=== PATIENT | female | born 1945 | race Hispanic/Latino ===

== ENCOUNTER 2016-06-30 06:25 | Inpatient (IN) | payer BC ==
[2016-06-22 14:07] VITALS: BMI 26.8
--- NOTE | 2016-06-30 07:20 | CP.PCM.HP ---
History of Present Illness - History of Present Illness History of Present Illness: 70F with right knee DJD failed conservative mgmt and elected for TKR Denies dysuria patient states she was called by PMD who told her to stop antibiotics as urine culture was negative. Present on Admission - Present on Admission Any Indicators Present on Admission: No Review of Systems - Review of Systems All systems: reviewed and no additional remarkable complaints except - Musculoskeletal Musculoskeletal: As Per HPI Past Patient History - Infectious Disease Hx of Infectious Diseases: None - Tetanus Immunizations Tetanus Immunization: Unknown - Past Medical History & Family History Past Medical History?: Yes - Past Social History Smoking Status: Former Smoker - CARDIAC Hx Cardiac Disorders: Yes Hx Heart Attack: Yes (2002) Hx Hypercholesterolemia: Yes Hx Hypertension: Yes Other/Comment: HX: CARDIAC STENT X1 - ENDOCRINE/METABOLIC Hx Endocrine Disorders: Yes Hx Hypothyroidism: Yes Hx Systemic Lupus Erythematosus: Yes Other/Comment: "I WAS TREATED FOR LUPUS FOR 22 YEARS BUT IT HAS NOT SHOWN UP IN MY TESTING SO THEY TOOK ME OFF MED. FOR LUPUS." - MUSCULOSKELETAL/RHEUMATOLOGICAL Hx Musculoskeletal Disorders: Yes Hx Arthritis: Yes Hx Osteoarthritis: Yes - GASTROINTESTINAL Hx Gastrointestinal Disorders: Yes Hx Gall Bladder Disease: Yes Hx Gastroesophageal Reflux: Yes - GENITOURINARY/GYNECOLOGICAL Hx Genitourinary Disorders: Yes Other/Comment: HX: "DROPPED BLADDER" - SURGICAL HISTORY Hx Surgeries: Yes Hx Cholecystectomy: Yes Hx Coronary Stent: Yes (X1) Other/Comment: HX: "BLADDER LIFT" - ANESTHESIA Hx Anesthesia: Yes Hx Anesthesia Reactions: No Hx Malignant Hyperthermia: No Has any member of the family had a problem w/ anesthesia?: No Meds Allergies/Adverse Reactions: Allergies Allergy/AdvReac Type Severity Reaction Status Date / Time No Known Allergies Allergy Verified 08/22/13 19:16 Physical Exam - Constitutional Appears: Well, No Acute Distress Additional comments: Medical clearance and H&P on chart, Dr. Carey - Extremities Exam Additional comments: Right knee: skin intact, no erythema, sensation intact to RLE, calves soft NT neg homans - Expanded Lower Extremities Exam Right Hip exam: full ROM Ankle exam: FULL ROM, NORMAL INSPECTION Neuro vacular tendon exam: no vascular compromise - Neurological Exam Neurological exam: Alert, Oriented x3 - Psychiatric Exam Psychiatric exam: Normal Affect, Normal Mood - Skin Skin Exam: Dry, Intact, Normal Color, Warm Results - Impressions Impression: Imaging in office Assessment & Plan (1) Primary osteoarthritis of right knee Assessment and Plan: NPO for OR Status: Acute (2) SLE (systemic lupus erythematosus) Status: Acute (3) CAD (coronary artery disease) Status: Acute (4) Hypothyroidism Status: Acute Decision To Admit - Pt Status Changed To: Hospital Disposition Of: Inpatient - Admit Certification Admit to Inpatient:: After my assessment, the patient will require hospitalization for at least two midnights. This is because of the severity of symptoms shown, intensity of services needed, and/or the medical risk in this patient being treated as an outpatient. - InPatient: Physician Admission Certification:: After my assessment, the patient will require hospitalization for at least two midnights. This is because of the severity of symptoms shown, intensity of services needed, and/or the medical risk in this patient being treated as an outpatient. - . Bed Request Type: Regular Admitting Physician: Dirk Loredo
[2016-06-30] MEDS ORDERED: ceFAZolin IV 1 gm in Dextrose 0 GM/0 ML BAG IVPB ONE (07:42)
[2016-06-30] MEDS ORDERED: Bupivacaine Liposomal Inj 20 ml INFIL ONE (08:00)
[2016-06-30 08:18] LABS: RBC URINE 2 /hpf (0-3); URINE BILIRUBIN NEGATIVE (NEGATIVE); URINE BLOOD NEGATIVE (NEGATIVE); URINE COLOR Yellow (YELLOW); URINE GLUCOSE (UA) NORMAL (Normal); URINE KETONE NEGATIVE (NEGATIVE); URINE LEUKOCYTE ESTERASE 1+ Leu/uL (Negative); URINE PROTEIN NEGATIVE (NEGATIVE); URINE UROBILINOGEN NORMAL mg/dL (0.2-1.0); WBC URINE 9 /hpf (0-5)
[2016-06-30] MEDS ORDERED: Lactated Ringer's 1,000 ML IV ONE ×3 (08:25→10:30)
[2016-06-30] MEDS ORDERED: Propofol 10 mg/ml Inj (20 ML) ONE (08:27)
[2016-06-30] MEDS ORDERED: Midazolam 2 MG/2 ML VIAL ONE (08:27)
[2016-06-30] MEDS ORDERED: Rocuronium 10 mg/ml (10 ml) ONE (08:29)
[2016-06-30] MEDS ORDERED: ceFAZolin IV 2 gm in Dextrose 1 GM/50 ML BAG IVPB ONE (08:43)
[2016-06-30] MEDS ORDERED: Labetalol 25mg/5ml Syringe ONE (09:08)
[2016-06-30] MEDS: Bacitracin 150,000 UNIT in Sodium Chloride 0.9% Irrig 3,000 ML IR SCH ×2 (09:15→10:25)
[2016-06-30] MEDS ORDERED: Sodium Chloride 0.9% 60 ML IV ONE (09:18)
[2016-06-30] MEDS ORDERED: DiphenhydrAMINE 50 mg/ml Inj ONE (09:49)
--- NOTE | 2016-06-30 11:21 | PCM.SURG1 ---
Surgeon's Initial Post Op Note - Surgeon's Notes Surgeon: Jacob Loredo MD Customer Sales Consultant: Jus Hernandez PA-C Type of Anesthesia: General Endo Anesthesia Administered By: Dr. Herring Pre-Operative Diagnosis: Right knee DJD Operative Findings: Tourniquet: 79min@ 300mmHg Post-Operative Diagnosis: same Operation Performed: Right total knee replacement Specimen/Specimens Removed: bone, loose body Estimated Blood Loss: EBL {In ML}: 150 Blood Products Given: N/A Drains Used: Hemovac Post-Op Condition: Fair Date of Surgery/Procedure: 06/30/16 Time of Surgery/Procedure: 11:21
[2016-06-30] MEDS ORDERED: HYDROmorphone 0.5 mg/0.5 ml ISec IVP PRN ×2 (11:22)
[2016-06-30] MEDS ORDERED: Oxycodone/Acetaminophen 5/325 mg Tab PO PRN (11:22)
[2016-06-30] MEDS ORDERED: Sodium Chloride 0.9% 1,000 ML IV SCH (11:30)
[2016-06-30] MEDS ORDERED: ceFAZolin IV 2 gm in Dextrose 50 ML IVPB SCH (11:30)
--- NOTE | 2016-06-30 12:02 | OP ---
PROCEDURE DATE: 06/30/2016 PREOPERATIVE DIAGNOSIS: Right knee degenerative joint disease. POSTOPERATIVE DIAGNOSIS: Right knee degenerative joint disease. PROCEDURE: Right total knee arthroplasty. SURGEON: Dirk Loredo M.D. GREEN CHAIN OFFBEARER: Dr. Loredo was assisted by Reno Romero, the physician school health assistant. Ms. Romero was scrub bed and present throughout the entire case. She assisted in patient positioning, retraction during t he case, as well as wound closure. ANESTHESIA: General. COMPLICATIONS: None. ESTIMATED BLOOD LOSS: 150 mL. TOURNIQUET TIME: 79 minutes at 300 mmHg. IMPLANT: Biomet Vanguard total knee system. INDICATIONS FOR PROCEDURE: This is a 70-year-old female who presented with longstanding right knee p ain and deformity. Clinical and radiographic examination was consistent with advanced degenerative j oint disease and varus malalignment. Recommendations were for right total knee arthroplasty. The ri sks, benefits, and alternatives of procedure were discussed with the patient and informed consent was obtained. OPERATIVE PROCEDURE: After surgical site was found and verified in preoperative holding area, the pa tient was taken to the operating room and placed supine on the operating room table. After administr ation of general anesthesia, patient received 2 grams of Ancef. A Montalvo catheter was inserted. Tour niquet was placed about the right thigh. Care was taken to make sure all bony prominences and nerves were well padded and protected and the right lower extremity was prepped and draped in usual sterile fashion. The right lower extremity was exsanguinated and the tourniquet was inflated. Approximatel y a 10 cm longitudinal midline incision was made. Soft tissue was dissected sharply down to the knee joint and medial parapatellar arthrotomy was performed. The anterior fat pad, the medial and latera l menisci as well as the ACL and PCL were all resected. Once the knee joint was adequately exposed, the step drill was used to drill into the medullary canal of the distal femur and the intramedullary distal femoral cutting block was inserted. Distal femoral resection was performed and our femoral co mponent was sized. The 4-in-1 cut block was then placed and our anterior and posterior cuts were per formed. The box cut was then performed on our distal femur and our attention was directed to the tib ia. Extramedullary tibial alignment guide was placed and our tibial resection was performed. At thi s point, our flexion and extension gaps were checked. The patient was noted to be stable through ran ge of motion for full extension to flexion and balanced. At this point, being careful to maintain pr oper rotation, the medullary canal of the proximal tibia was reamed and punched with the cruciate pun ch. With trial tibia, trial femur, and trial bearing in place, the knee was taken through range of m otion and was noted to be stable. At this point, attention was directed to the patella. Thickness o f patella was measured and our patellar resection was performed. Patellar button was sized and the h ole for our patella button was then drilled. Trial patella was inserted and the knee was taken throu gh a range of motion. Patella was noted to have lateral tilt and this was corrected by performing a lateral retinacular release. At this point, all the trial components were removed and the knee was p ulse lavaged with antibiotic saline solution. The actual tibial, femoral and patellar components wer e cemented into place. Care was taken to remove all excess cement while the cement hardened. Once t he cement was hardened, the wound was inspected for any debris and was pulse lavaged. The actual rebekah ring was then inserted into place. The tourniquet was deflated and any obvious bleeding was cauterize d. Medium Hemovac drain was placed and our arthrotomy was closed using #1 Vicryl suture. The subcut aneous tissue was closed using 0 Vicryl and 2-0 Vicryl suture and the skin was closed using keivn. Sterile dressing was applied. The patient was awakened from the procedure, taken to recovery room i n stable condition. Dirk Loredo MD cc: [id number] TT: 06/30/2016 12:02:26 [email or web address]
[2016-06-30] MEDS ORDERED: Sodium Chloride 0.9% 1,000 ML IV ONE (13:00)
--- NOTE | 2016-06-30 14:37 | RAD ---
PROCEDURE: Right Knee Radiographs. HISTORY: pt in pacu, s/p TKR COMPARISON: None. FINDINGS: BONES: Status post right knee arthroplasty. The hardware are seen at appropriate position. JOINTS: No evidence of dislocation. JOINT EFFUSION: No evidence of significant joint effusion. OTHER FINDINGS: Postsurgical changes and surgical drainage are seen overlying the right knee P IMPRESSION: Status post right knee arthroplasty. Appropriate position of the hardware.
[2016-06-30] MEDS ORDERED: Bupivacaine 0.5% Inj(30mL) ONE (14:38)
--- NOTE | 2016-06-30 16:16 | PCM.ANESB7 ---
Adductor Canal Block - Adductor Canal Block Date of Procedure: 06/30/16 Procedure Performed: Adductor Canal Block Right - Procedure Adductor Canal Block: The procedure was explained to the patient that it is for the post-operative pain management. Consent was obtained after a thorough discussion with the patient regarding the benefits and possible complications of local anesthetic adductor canal block of the femoral nerve. Standard monitors, as defined by the ASA, were applied to the patient. Time-out was held with the circulating nurse to confirm the appropriate block. After applying supplemental oxygen and administering IV Sedation as needed, the patient was placed in supine position with and the operative leg was flexed slightly at the knee and externally rotated as needed, and was kept anatomically stable. The mid-thigh of the RIGHT lower extremity was exposed. The ultrasound transducer was then applied transversely along the medial aspect, about midway down the thigh and the femoral artery and vein were identified in appropriate relation with the sartorius muscle. At this time, the saphenous nerve was visualized lateral to the femoral artery within the canal. After thorough identification, this area area was prepped with Chloroprep solution three times and 1 % Lidocaine was injected subcutaneously for topical anesthesia. At this point, a #22 gauge Stimuplex 4-inch needle was inserted in-plane in a [id number] orientation, and advanced toward the saphenous nerve. Advancement was performed carefully under direct ultrasound visualization. After negative aspiration, _10 cc of _0.5% _ropvicaine_was injected and this was followed with 10 cc of 0.5 % ropivicaine. Under ultrasound guidance the local anesthetics were observed spreading around the saphenous nerve. The needle was removed intact and sterile dressing was applied. The patient had stable vital signs, was conscious and in no apparent distress. The patient tolerated the ssphenous nerve block well with stable vital signs, no paresthesias, no sequelae, no complaints, tolerated procedure well.
[2016-06-30 18:23] VITALS: RESP 20
[2016-07-01] MEDS ORDERED: Levothyroxine 112 MCG TAB PO SCH (06:30)
[2016-07-01 07:03] LABS: HEMATOCRIT 33.6 % (34.0-47.0); MEAN CELL VOLUME 87.9 fL (81.0-99.0); MEAN PLATELET VOLUME 9.6 fL (7.2-11.7); RED CELL DISTRIBUTION WIDTH 13.5 % (11.5-14.5); WHITE BLOOD COUNT 9.7 K/uL (4.8-10.8)
[2016-07-01 07:16] LABS: CHLORIDE 103 mmol/L (98-107); POTASSIUM 4.1 mmol/L (3.6-5.2); SODIUM 138 mmol/L (132-148)
[2016-07-01 07:18] LABS: GFR AFRICAN-AMERICAN > 60
[2016-07-01 07:19] LABS: BLOOD UREA NITROGEN 15 mg/dL (7-17); CALCIUM 8.7 mg/dl (8.6-10.4); CARBON DIOXIDE 26 mmol/L (22-30); GLUCOSE,RANDOM 122 mg/dL (65-105)
--- NOTE | 2016-07-01 09:11 | CP.PCM.CON ---
History of Present Illness - History of Present Illness History of Present Illness: CONSULT NOTE FOR DR. IRIZARRY Reason for consult: Medical management 70 year old female with a history of NH with stent in 2001 and lupus presents POD#1 s/p R knee replacement as she had R knee DJD and failed conservative management. Patient has R knee immobilizer in place. Patient is seen and examined sitting in chair. Nursing reports no adverse events overnight. She has no complaints at this time and states that her pain is well controlled with the medications. She is comfortable and states she can move her toes and feet with minimal pain. since the surgery, she has passed urine without pain or burning and is passing gas. She has not yet had a BM. Pt denies headache, dizziness, shortness of breath, chest pain, palpitations, abdominal pain, nausea, vomiting , or leg swelling. PMD: Dr. Carey ([place]) PMHx: NH with stent placement (2001), lupus PSHx: R knee replacement, cholecystectomy, bladder prolapse repair Meds: toporol, ASA, synthroid, statin; patient reports she used to take meds for lupus in the past which she no longer takes Allergies: NKDA FamHx: dad had emphysema/"heart problems;" mom had rheumatic fever and strokes Social: 30 year smoking history, quit in . Denies alcohol or drugs. Lives alone, works in a [employer], slicing meat. Review of Systems - Constitutional Constitutional: As Per HPI. absent: Chills, Fever - EENT Eyes: As Per HPI. absent: Blurred Vision Ears: As Per HPI. absent: Tinnitus Nose/Mouth/Throat: As Per HPI. absent: Sore Throat - Cardiovascular Cardiovascular: As Per HPI. absent: Chest Pain, Dyspnea, Palpitations - Respiratory Respiratory: As Per HPI. absent: Cough, Dyspnea, Chest Congestion - Gastrointestinal Gastrointestinal: As Per HPI. absent: Abdominal Pain, Constipation, Diarrhea, Nausea, Vomiting - Genitourinary Genitourinary: As Per HPI. absent: Dysuria, Urinary Frequency - Musculoskeletal Musculoskeletal: As Per HPI. absent: Back Pain Additional comments: RLE pain controlled with meds - Integumentary Integumentary: As Per HPI. absent: Rash - Neurological Neurological: As Per HPI. absent: Dizziness, Weakness - Psychiatric Psychiatric: As Per HPI. absent: Anxiety - Endocrine Endocrine: As Per HPI. absent: Palpitations - Hematologic/Lymphatic Hematologic: As Per HPI. absent: Easy Bleeding, Easy Bruising Past Patient History - Infectious Disease Hx of Infectious Diseases: None - Tetanus Immunizations Tetanus Immunization: Unknown - Past Medical History & Family History Past Medical History?: Yes - Past Social History Smoking Status: Former Smoker - CARDIAC Hx Cardiac Disorders: Yes Hx Heart Attack: Yes (2002) Hx Hypercholesterolemia: Yes Hx Hypertension: Yes Other/Comment: HX: CARDIAC STENT X1 - PULMONARY Hx Respiratory Disorders: No - NEUROLOGICAL Hx Neurological Disorder: No - HEENT Hx HEENT Problems: No - RENAL Hx Chronic Kidney Disease: No - ENDOCRINE/METABOLIC Hx Endocrine Disorders: Yes Hx Hypothyroidism: Yes Hx Systemic Lupus Erythematosus: Yes Other/Comment: "I WAS TREATED FOR LUPUS FOR 22 YEARS BUT IT HAS NOT SHOWN UP IN MY TESTING SO THEY TOOK ME OFF MED. FOR LUPUS." - HEMATOLOGICAL/ONCOLOGICAL Hx Blood Transfusions: No - INTEGUMENTARY Hx Dermatological Problems: No - MUSCULOSKELETAL/RHEUMATOLOGICAL Hx Falls: No - GASTROINTESTINAL Hx Gastrointestinal Disorders: Yes Hx Gall Bladder Disease: Yes Hx Gastroesophageal Reflux: Yes - GENITOURINARY/GYNECOLOGICAL Hx Genitourinary Disorders: Yes Other/Comment: HX: "DROPPED BLADDER" - PSYCHIATRIC Hx Substance Use: No - SURGICAL HISTORY Hx Surgeries: Yes Hx Cholecystectomy: Yes Hx Coronary Stent: Yes (X1) Other/Comment: HX: "BLADDER LIFT" - ANESTHESIA Hx Anesthesia: Yes Hx Anesthesia Reactions: No Hx Malignant Hyperthermia: No Has any member of the family had a problem w/ anesthesia?: No Meds Allergies/Adverse Reactions: Allergies Allergy/AdvReac Type Severity Reaction Status Date / Time No Known Allergies Allergy Verified 08/22/13 19:16 - Medications Medications: Current Medications Acetaminophen (Tylenol 325mg Tab) 650 mg PO Q4 PRN PRN Reason: Fever 101 degrees fahrenheit Aspirin (Ecotrin) 81 mg PO DAILY [facility] Docusate Sodium (Colace) 100 mg PO BID [facility] Enoxaparin Sodium (Lovenox) 30 mg SC Q12 [facility] Hydromorphone HCl (Dilaudid) 0.5 mg IVP Q4H PRN PRN Reason: Pain, severe (8-10) Sodium Chloride (Sodium Chloride 0.9%) 1,000 mls @ 60 mls/hr IV .[id number] [facility] Last Admin: 06/30/16 21:55 Dose: 60 mls/hr Levothyroxine Sodium (Synthroid) 100 mcg PO SuMoWeFr@0630 [facility] Levothyroxine Sodium (Synthroid) 112 mcg PO TuThSa@0630 [facility] Last Admin: 07/01/16 06:02 Dose: 112 mcg Metoprolol Succinate (Toprol Xl) 50 mg PO DAILY [facility] Oxycodone/Acetaminophen (Percocet 5/325 Mg Tab) 1 tab PO Q4 PRN PRN Reason: Pain, moderate (4-7) Stop: 07/03/16 11:23 Pantoprazole Sodium (Protonix Ec Tab) 40 mg PO DAILY [facility] Rosuvastatin Calcium (Crestor) 20 mg PO HS [facility] Physical Exam - Constitutional Appears: Well, Non-toxic, No Acute Distress - Head Exam Head Exam: ATRAUMATIC, NORMAL INSPECTION, NORMOCEPHALIC - Eye Exam Eye Exam: EOMI, Normal appearance. absent: Conjunctival injection, Scleral icterus Pupil Exam: NORMAL ACCOMODATION - ENT Exam ENT Exam: Mucous Membranes Moist - Neck Exam Neck exam: Positive for: Full Rom, Normal Inspection. Negative for: Tenderness - Respiratory Exam Respiratory Exam: Clear to Auscultation Bilateral, NORMAL BREATHING PATTERN. absent: Accessory Muscle Use, Rales, Rhonchi, Wheezes, Respiratory Distress - Cardiovascular Exam Cardiovascular Exam: REGULAR RHYTHM, RRR, +S1, +S2. absent: Systolic Murmur - GI/Abdominal Exam GI & Abdominal Exam: Normal Bowel Sounds, Soft. absent: Distended, Firm, Guarding, Rigid, Tenderness - Extremities Exam Extremities exam: Positive for: pedal pulses present. Negative for: pedal edema Additional comments: RLE in knee immobilizer - Back Exam Back exam: NORMAL INSPECTION. absent: rash noted - Neurological Exam Neurological exam: Alert, Oriented x3 - Psychiatric Exam Psychiatric exam: Normal Affect, Normal Mood - Skin Skin Exam: Dry, Intact, Normal Color, Warm Results - Vital Signs Recent Vital Signs: Last Vital Signs Temp 98.7 F 07/01/16 07:35 Pulse 77 07/01/16 07:35 Resp 20 07/01/16 07:35 BP 105/67 07/01/16 07:35 Pulse Ox 97 07/01/16 07:35 - Labs Result Diagrams: 07/01/16 06:55 07/01/16 06:55 Labs: Laboratory Results - last 24 hr 07/01/16 07/01/16 06:55 06:55 WBC 9.7 RBC 3.83 Hgb 11.1 Hct 33.6 L MCV 87.9 MCH 29.0 MCHC 33.0 RDW 13.5 Plt Count 192 MPV 9.6 Sodium 138 Potassium 4.1 Chloride 103 Carbon Dioxide 26 Anion Gap 14 BUN 15 Creatinine 0.8 Est GFR ( Amer) > 60 Est GFR (Non-Af Amer) > 60 Random Glucose 122 H Calcium 8.7 Assessment & Plan - Assessment and Plan (Free Text) Assessment: 70 year old female with a history of NH with stent in 2001 and lupus presents POD#1 s/p R knee replacement as she had R knee DJD and failed conservative management Plan: R knee DJD -Patient is POD#1 R knee arthroplasty -Pain regimen as per ortho -PT/OT -IS use -OOB -VTE ppx -Ortho Dr. Loredo and Reno Romero PA on board CAD -ASA 81mg po daily -Toprol 50mg po daily -Crestor 20mg po hs Hypothyroidism -continue home meds Synthroid 112mcg po //Sat Synthroid 100mcg Galvez/Mo//Fri Hypercholesterolemia -Crestor 20mg po hs -f/u lipid panel Hx of Lupus -patient not on any meds at home PPX -Protonix 40mg po daily -Lovenox 30mg SC q12 -Colace 100mg po bid -OOB -PT/OT -IS use -SCD c/i Will discuss case with Dr. Mary Alice Bella PGY1
[2016-07-01] MEDS: Pantoprazole 40 mg EC Tab PO SCH (09:27)
[2016-07-01] MEDS: Metoprolol Succinate 50 mg XL Tab PO SCH (09:27)
[2016-07-01] MEDS: Enoxaparin 30 mg Syringe SC SCH ×2 (09:27→22:25)
--- NOTE | 2016-07-01 13:39 | CP.PCM.PN ---
Subjective - Date & Time of Evaluation Date of Evaluation: 07/01/16 Time of Evaluation: 08:00 - Subjective Subjective: Patient states she has minimal pain in her right knee. She slept overnight. Denies CP/SOB/dizziness/n/v/numbness/tingling RLE: +ROM ankle/toes, sensation intact, +DP/PT pulses, cavles soft NT neg homans hemovac 5cc, now compressed. knee immob intact Objective - Vital Signs/Intake and Output Vital Signs (last 24 hours): Temp Pulse Resp BP Pulse Ox 98.7 F 77 20 105/67 97 07/01/16 07:35 07/01/16 07:35 07/01/16 07:35 07/01/16 07:35 07/01/16 07:35 Intake and Output: 07/01/16 07/01/16 06:59 18:59 Intake Total 750 Output Total 1535 Balance -785 - Medications Medications: Current Medications Acetaminophen (Tylenol 325mg Tab) 650 mg PO Q4 PRN PRN Reason: Fever 101 degrees fahrenheit Aspirin (Ecotrin) 81 mg PO DAILY [facility] Docusate Sodium (Colace) 100 mg PO BID [facility] Last Admin: 07/01/16 09:21 Dose: 100 mg Enoxaparin Sodium (Lovenox) 30 mg SC Q12 [facility] Last Admin: 07/01/16 09:27 Dose: 30 mg Hydromorphone HCl (Dilaudid) 0.5 mg IVP Q4H PRN PRN Reason: Pain, severe (8-10) Sodium Chloride (Sodium Chloride 0.9%) 1,000 mls @ 60 mls/hr IV .[id number] [facility] Last Admin: 06/30/16 21:55 Dose: 60 mls/hr Levothyroxine Sodium (Synthroid) 100 mcg PO SuMoWeFr@0630 [facility] Levothyroxine Sodium (Synthroid) 112 mcg PO TuThSa@0630 [facility] Last Admin: 07/01/16 06:02 Dose: 112 mcg Metoprolol Succinate (Toprol Xl) 50 mg PO DAILY [facility] Last Admin: 07/01/16 09:27 Dose: 50 mg Oxycodone/Acetaminophen (Percocet 5/325 Mg Tab) 1 tab PO Q4 PRN PRN Reason: Pain, moderate (4-7) Stop: 07/03/16 11:23 Pantoprazole Sodium (Protonix Ec Tab) 40 mg PO DAILY [facility] Last Admin: 07/01/16 09:27 Dose: 40 mg Rosuvastatin Calcium (Crestor) 20 mg PO HS [facility] - Labs Labs: 07/01/16 06:55 07/01/16 06:55 Assessment and Plan (1) Primary osteoarthritis of right knee Assessment & Plan: POD# 1 s/p right TKR PT/OT denied acute rehab, awaiting auth for [facility] VTE proph d/c planning OOB labs reviewed cont home meds medical consult d/w Dr. villalba, agrees with above Status: Acute (2) SLE (systemic lupus erythematosus) Status: Chronic (3) CAD (coronary artery disease) Status: Chronic (4) Hypothyroidism Status: Chronic
[2016-07-02] MEDS ORDERED: Levothyroxine 100 MCG TAB PO SCH (06:30)
[2016-07-02 07:11] LABS: BASO % 0.3 % (0.0-2.0); EOS % 0.5 % (0.0-4.0); HEMATOCRIT 28.6 % (34.0-47.0); LYMPH # 1.8 K/uL (1.0-4.3); LYMPH % 21.7 % (20.0-40.0); MEAN CELL VOLUME 87.2 fL (81.0-99.0); MEAN CORPUSCULAR HEMOGLOBIN 29.7 pg (27.0-31.0); MEAN PLATELET VOLUME 9.6 fL (7.2-11.7); MONO % 12.8 % (0.0-10.0); RED CELL DISTRIBUTION WIDTH 13.3 % (11.5-14.5); WHITE BLOOD COUNT 8.1 K/uL (4.8-10.8)
--- NOTE | 2016-07-02 07:44 | CP.PCM.PN ---
Subjective - Date & Time of Evaluation Date of Evaluation: 07/02/16 Time of Evaluation: 08:00 - Subjective Subjective: Patient states pain in her knee is well controlled. Denies CP/SOB/dizziness. Denies n/v/numbness/tingling. Objective - Vital Signs/Intake and Output Vital Signs (last 24 hours): Temp Pulse Resp BP Pulse Ox 99.4 F 84 20 114/62 95 07/02/16 04:30 07/02/16 04:30 07/02/16 04:30 07/02/16 04:30 07/02/16 06:11 Intake and Output: 07/02/16 07/02/16 06:59 18:59 Intake Total 390 Output Total 12 Balance 378 - Medications Medications: Current Medications Acetaminophen (Tylenol 325mg Tab) 650 mg PO Q4 PRN PRN Reason: Fever 101 degrees fahrenheit Aspirin (Ecotrin) 81 mg PO DAILY [facility] Docusate Sodium (Colace) 100 mg PO BID [facility] Last Admin: 07/01/16 17:28 Dose: 100 mg Enoxaparin Sodium (Lovenox) 30 mg SC Q12 [facility] Last Admin: 07/01/16 22:25 Dose: 30 mg Hydromorphone HCl (Dilaudid) 0.5 mg IVP Q4H PRN PRN Reason: Pain, severe (8-10) Levothyroxine Sodium (Synthroid) 100 mcg PO SuMoWeFr@0630 [facility] Last Admin: 07/02/16 06:02 Dose: 100 mcg Levothyroxine Sodium (Synthroid) 112 mcg PO TuThSa@0630 [facility] Last Admin: 07/01/16 06:02 Dose: 112 mcg Metoprolol Succinate (Toprol Xl) 50 mg PO DAILY [facility] Last Admin: 07/01/16 09:27 Dose: 50 mg Oxycodone/Acetaminophen (Percocet 5/325 Mg Tab) 1 tab PO Q4 PRN PRN Reason: Pain, moderate (4-7) Stop: 07/03/16 11:23 Last Admin: 07/01/16 21:21 Dose: 1 tab Pantoprazole Sodium (Protonix Ec Tab) 40 mg PO DAILY [facility] Last Admin: 07/01/16 09:27 Dose: 40 mg Rosuvastatin Calcium (Crestor) 20 mg PO [facility] Last Admin: 07/01/16 21:06 Dose: 20 mg - Labs Labs: 07/02/16 07:04 07/01/16 06:55 - Extremities Exam Additional comments: Right knee dressing changed. Hemovac pulled. Incision intact, no erythema, mild ecchymosis. moderate swelling. Calves soft NT neg homans. +DP/PT pulses, sensation intact +DF/PF ankle Assessment and Plan (1) Primary osteoarthritis of right knee Assessment & Plan: POD#2 s/p right TKR d/c to rehab today dressing change right knee daily knee immobilizer at night f/u 1 week in office cont lovenox/home meds d/w Dr. Loredo, agrees with above Status: Acute (2) SLE (systemic lupus erythematosus) Assessment & Plan: cont home meds f/u PMD as outpt Status: Chronic (3) CAD (coronary artery disease) Status: Chronic (4) Hypothyroidism Status: Chronic
[2016-07-02 07:49] LABS: CHLORIDE 101 mmol/L (98-107)
[2016-07-02 07:50] LABS: POTASSIUM 3.8 mmol/L (3.6-5.2); SODIUM 136 mmol/L (132-148)
[2016-07-02 07:52] LABS: CHOLESTEROL 123 mg/dL (0-199); GFR AFRICAN-AMERICAN > 60
[2016-07-02 07:53] LABS: ALB/GLOB RATIO 1.2 (1.0-2.1); ALKALINE PHOSPHATASE 80 U/L (38-126); ALT/SGPT 46 U/L (9-52); AST/SGOT 38 U/L (14-36); BILIRUBIN,TOTAL 1.3 mg/dL (0.2-1.3); BLOOD UREA NITROGEN 20 mg/dL (7-17); CARBON DIOXIDE 28 mmol/L (22-30); GLUCOSE,RANDOM 106 mg/dL (65-105); PHOSPHOROUS 2.6 mg/dL (2.5-4.5)
[2016-07-02 07:54] LABS: CALCIUM 8.4 mg/dl (8.6-10.4); MAGNESIUM 2.1 mg/dL (1.6-2.3)
[2016-07-02 08:13] LABS: THYROID STIMULATING HORMONE 0.41 mIU/L (0.46-4.68)
[2016-07-02] MEDS: Enoxaparin 30 mg Syringe SC SCH (09:41)
[2016-07-02] MEDS: Pantoprazole 40 mg EC Tab PO SCH (09:42)
[2016-07-02] MEDS: Metoprolol Succinate 50 mg XL Tab PO SCH (09:42)
--- NOTE | 2016-07-02 10:47 | CP.PCM.DIS ---
Provider - Provider Date of Admission: 06/30/16 06:25 Attending physician: Dirk Loredo MD Primary care physician: Dr. Carey Consults: Dr. Wheat Time Spent in preparation of Discharge (in minutes): 5 Diagnosis - Discharge Diagnosis (1) Primary osteoarthritis of right knee Status: Acute (2) SLE (systemic lupus erythematosus) Status: Chronic (3) CAD (coronary artery disease) Status: Chronic (4) Hypothyroidism Status: Chronic (5) Acute blood loss anemia Status: Acute Comment: stable Hospital Course - Lab Results Lab Results: Most Recent Lab Values WBC 8.1 K/uL (4.8-10.8) 07/02/16 07:04 RBC 3.28 Mil/uL (3.80-5.20) L 07/02/16 07:04 Hgb 9.7 g/dL (11.0-16.0) L 07/02/16 07:04 Hct 28.6 % (34.0-47.0) L 07/02/16 07:04 MCV 87.2 fL (81.0-99.0) 07/02/16 07:04 MCH 29.7 pg (27.0-31.0) 07/02/16 07:04 MCHC 34.0 g/dL (33.0-37.0) 07/02/16 07:04 RDW 13.3 % (11.5-14.5) 07/02/16 07:04 Plt Count 157 K/uL (130-400) 07/02/16 07:04 MPV 9.6 fL (7.2-11.7) 07/02/16 07:04 Neut % (Auto) 64.7 % (50.0-75.0) 07/02/16 07:04 Lymph % (Auto) 21.7 % (20.0-40.0) 07/02/16 07:04 [place] % (Auto) 12.8 % (0.0-10.0) H 07/02/16 07:04 Eos % (Auto) 0.5 % (0.0-4.0) 07/02/16 07:04 Baso % (Auto) 0.3 % (0.0-2.0) 07/02/16 07:04 Neut # 5.3 K/uL (1.8-7.0) 07/02/16 07:04 Lymph # 1.8 K/uL (1.0-4.3) 07/02/16 07:04 [place] # 1.0 K/uL (0.0-0.8) H 07/02/16 07:04 Eos # 0.0 K/uL (0.0-0.7) 07/02/16 07:04 Baso # 0.0 K/uL (0.0-0.2) 07/02/16 07:04 Sodium 136 mmol/L (132-148) 07/02/16 07:04 Potassium 3.8 mmol/L (3.6-5.2) 07/02/16 07:04 Chloride 101 mmol/L (98-107) 07/02/16 07:04 Carbon Dioxide 28 mmol/L (22-30) 07/02/16 07:04 Anion Gap 10 (10-20) 07/02/16 07:04 BUN 20 mg/dL (7-17) H 07/02/16 07:04 Creatinine 0.7 MG/DL (0.7-1.2) 07/02/16 07:04 Est GFR ( Amer) > 60 07/02/16 07:04 Est GFR (Non-Af Amer) > 60 07/02/16 07:04 POC Glucose (mg/dL) 121 mg/dL (65-110) H 07/01/16 16:19 Random Glucose 106 mg/dL (65-105) H 07/02/16 07:04 Hemoglobin A1c 5.6 % (4.2-6.5) 07/02/16 07:04 Calcium 8.4 mg/dl (8.6-10.4) L 07/02/16 07:04 Phosphorus 2.6 mg/dL (2.5-4.5) 07/02/16 07:04 Magnesium 2.1 mg/dL (1.6-2.3) 07/02/16 07:04 Total Bilirubin 1.3 mg/dL (0.2-1.3) 07/02/16 07:04 AST 38 U/L (14-36) H 07/02/16 07:04 ALT 46 U/L (9-52) 07/02/16 07:04 Alkaline Phosphatase 80 U/L (38-126) 07/02/16 07:04 Total Protein 6.0 g/dL (6.3-8.3) L 07/02/16 07:04 Albumin 3.3 g/dL (3.5-5.0) L 07/02/16 07:04 Globulin 2.7 gm/dL (2.2-3.9) 07/02/16 07:04 Albumin/Globulin Ratio 1.2 (1.0-2.1) 07/02/16 07:04 Triglycerides 114 mg/dL (0-149) 07/02/16 07:04 Cholesterol 123 mg/dL (0-199) 07/02/16 07:04 LDL Cholesterol Direct 65 mg/dL (0-129) 07/02/16 07:04 HDL Cholesterol 37 mg/dL (30-70) 07/02/16 07:04 Free T4 1.23 ng/dL (0.78-2.19) 07/02/16 07:04 TSH 3rd Generation 0.41 mIU/L (0.46-4.68) L 07/02/16 07:04 Urine Color Yellow (YELLOW) 06/30/16 07:22 Urine Clarity Hazy (Clear) 06/30/16 07:22 Urine pH 5.0 (5.0-8.0) 06/30/16 07:22 Ur Specific [place] 1.015 (1.003-1.030) 06/30/16 07:22 Urine Protein Negative mg/dL (NEGATIVE) 06/30/16 07:22 Urine Glucose (UA) Normal mg/dL (Normal) 06/30/16 07:22 Urine Ketones Negative mg/dL (NEGATIVE) 06/30/16 07:22 Urine Blood Negative (NEGATIVE) 06/30/16 07:22 Urine Nitrate Negative (NEGATIVE) 06/30/16 07:22 Urine Bilirubin Negative (NEGATIVE) 06/30/16 07:22 Urine Urobilinogen Normal mg/dL (0.2-1.0) 06/30/16 07:22 Ur Leukocyte Esterase 1+ Yue/uL (Negative) H 06/30/16 07:22 Urine WBC (Auto) 9 /hpf (0-5) H 06/30/16 07:22 Urine RBC (Auto) 2 /hpf (0-3) 06/30/16 07:22 Ur Squamous Epith Cells 3 /hpf (0-5) 06/30/16 07:22 Blood Type A POSITIVE 06/30/16 07:22 Antibody Screen Negative 06/30/16 07:22 - Hospital Course Hospital Course: 70F with PMH: CAD, SLE, hypothyroidism with right knee osteoarthritis failed conservative management and elected for TKR. Postoperative imaging demonstrated acceptable position of prosthesis. Medical consultation was requested for post operative medical management. Patients post operative course was complicated by acute blood loss anemia, hemodynamically stable and well tolerated, no treatment needed. Patient tolerated PT/OT well. Patient received VTE prophylaxis in the form of lovenox 30mg SQ q12h and venodynes. PT was discharged to [facility], and continued on home medications as well as the lovenox. Patient was WBAT LLE, ambulating with walker, and given instructions for daily dressing changes and to f/u Dr. Loredo within 7-10 days. Discharge Exam - Head Exam Head Exam: ATRAUMATIC, NORMAL INSPECTION, NORMOCEPHALIC Discharge Plan - Follow Up Plan Condition: GOOD Disposition: REHAB FACILITY/REHAB UNIT Referrals: Dirk Loredo MD [Staff Provider] - 1 Week (-dressing change right knee daily -knee immobilizer at night, remove during day -do not put pillow behind knee -f/u 7-10 days call for appointment -WBAT RLE)
--- NOTE | 2016-07-02 11:59 | CP.PCM.PN ---
<Adilene Bella - Last Filed: 07/02/16 11:59> Subjective - Date & Time of Evaluation Date of Evaluation: 07/02/16 Time of Evaluation: 07:00 - Subjective Subjective: PGY1 Medicine note for Dr. Wheat Patient seen and examined at bedside. POD #2 R knee replacement for R knee DJD. Patient had no acute events overnight. She is ambulating with PT and working well with OT. She reported her pain is controlled. Denied headache, dizziness, shortness of breath, chest pain, palpitations, abdominal pain, nausea, vomiting , bowel/bladder complaints, leg swelling. Patient has been using IS and is eating well. She is aware of being transferred to [facility] today as per ortho. Objective - Vital Signs/Intake and Output Vital Signs (last 24 hours): Temp Pulse Resp BP Pulse Ox 98.8 F 82 20 126/82 98 07/02/16 07:25 07/02/16 07:25 07/02/16 07:25 07/02/16 07:25 07/02/16 07:25 Intake and Output: 07/02/16 07/02/16 06:59 18:59 Intake Total 390 Output Total 12 Balance 378 - Medications Medications: Current Medications Acetaminophen (Tylenol 325mg Tab) 650 mg PO Q4 PRN PRN Reason: Fever 101 degrees fahrenheit Aspirin (Ecotrin) 81 mg PO DAILY [facility] Last Admin: 07/02/16 09:42 Dose: 81 mg Docusate Sodium (Colace) 100 mg PO BID [facility] Last Admin: 07/02/16 10:20 Dose: 100 mg Enoxaparin Sodium (Lovenox) 30 mg SC Q12 [facility] Last Admin: 07/02/16 09:41 Dose: 30 mg Hydromorphone HCl (Dilaudid) 0.5 mg IVP Q4H PRN PRN Reason: Pain, severe (8-10) Levothyroxine Sodium (Synthroid) 100 mcg PO [id number] [facility] Last Admin: 07/02/16 06:02 Dose: 100 mcg Levothyroxine Sodium (Synthroid) 112 mcg PO [id number] [facility] Last Admin: 07/01/16 06:02 Dose: 112 mcg Metoprolol Succinate (Toprol Xl) 50 mg PO DAILY [facility] Last Admin: 07/02/16 09:42 Dose: 50 mg Oxycodone/Acetaminophen (Percocet 5/325 Mg Tab) 1 tab PO Q4 PRN PRN Reason: Pain, moderate (4-7) Stop: 07/03/16 11:23 Last Admin: 07/01/16 21:21 Dose: 1 tab Pantoprazole Sodium (Protonix Ec Tab) 40 mg PO DAILY [facility] Last Admin: 07/02/16 09:42 Dose: 40 mg Rosuvastatin Calcium (Crestor) 20 mg PO HS [facility] Last Admin: 07/01/16 21:06 Dose: 20 mg - Labs Labs: 07/02/16 07:04 07/02/16 07:04 - Constitutional Appears: Well, Non-toxic, No Acute Distress - Head Exam Head Exam: ATRAUMATIC, NORMAL INSPECTION, NORMOCEPHALIC - Eye Exam Eye Exam: EOMI, Normal appearance, PERRL. absent: Conjunctival injection, Scleral icterus Pupil Exam: NORMAL ACCOMODATION - ENT Exam ENT Exam: Mucous Membranes Moist - Neck Exam Neck Exam: Normal Inspection. absent: Tenderness - Respiratory Exam Respiratory Exam: Clear to Ausculation Bilateral, NORMAL BREATHING PATTERN. absent: Accessory Muscle Use, Rales, Rhonchi, Wheezes, Respiratory Distress - Cardiovascular Exam Cardiovascular Exam: REGULAR RHYTHM, RRR, +S1, +S2. absent: Murmur - GI/Abdominal Exam GI & Abdominal Exam: Soft, Normal Bowel Sounds. absent: Firm, Guarding, Rigid, Tenderness - Extremities Exam Extremities Exam: Normal Capillary Refill, Tenderness (to palpation). absent: Joint Swelling, Pedal Edema Additional comments: Knee in JAMAL wrap when I saw patient - Back Exam Back Exam: NORMAL INSPECTION. absent: rash noted, tenderness - Neurological Exam Neurological Exam: Alert, Awake, Oriented x3 - Psychiatric Exam Psychiatric exam: Normal Affect, Normal Mood - Skin Skin Exam: Dry, Intact, Normal Color, Warm Assessment and Plan - Assessment and Plan (Free Text) Assessment: 70yo F with PMHx of [place] with stent in 2001 and lupus presents POD#2 s/p R knee replacement as she had R knee DJD and failed conservative management Plan: R knee DJD -Patient is POD#2 R knee arthroplasty -Pain regimen as per ortho -PT/OT -IS use -OOB -VTE ppx -Ortho Dr. Loredo and [place] Romero PA on board CAD -ASA 81mg po daily -Toprol 50mg po daily -Crestor 20mg po hs Hypothyroidism -continue home meds Synthroid 112mcg po //Tue Synthroid 100mcg [place]///Tue Hypercholesterolemia -Crestor 20mg po hs Hx of Lupus -patient not on any meds at home PPX -Protonix 40mg po daily -Lovenox 30mg SC q12 -Colace 100mg po bid -OOB -PT/OT -IS use -SCD c/i -Dispo: patient to be discharged to [facility] today 07/02 Will discuss case with Dr. Mary Alice Bella PGY1 <Johnny Wheat Jr. - Last Filed: 07/07/16 14:48> Objective - Vital Signs/Intake and Output Vital Signs (last 24 hours): Temp Pulse Resp BP Pulse Ox 97.6 F 93 H 20 115/77 95 07/02/16 17:00 07/02/16 17:00 07/02/16 17:00 07/02/16 17:00 07/02/16 17:00 - Labs Labs: 07/02/16 07:04 07/02/16 07:04 Attending/Attestation - Attestation I have personally seen and examined this patient.: Yes I have fully participated in the care of the patient.: Yes I have reviewed all pertinent clinical information, including history, physical exam and plan: Yes Notes (Text): 07/07/16 14:48 Agree with resident's findings and plan of care
[2016-07-02 17:43] VITALS: BP 115/77; PULSE 93; TEMP 97.6; O2SAT 95
--- NOTE | 2016-07-07 20:56 | CARD ---
APPROVED REPORT EKG Measurement Heart [id number] <Conclusion> Normal sinus rhythm Minimal voltage criteria for LVH, may be normal variant T wave abnormality, consider lateral ischemia Abnormal ECG
== END 2016-07-02 18:05 | DRG 470 ==
LOC: C.9S 06:25 → C.6T 17:26
PROVIDERS: ADMIT Orthopaedic Surgery; ATTEND Orthopaedic Surgery
PROC: 3E0T3CZ (ICD-10-PCS; 2016-06-30)
PROC: 0SRC0J9 Replacement of Right Knee Joint with Synthetic Substitute, Cemented, Open Approach (ICD-10-PCS; principal; 2016-06-30 09:00)
DX: M17.11 Unilateral primary osteoarthritis, right knee (principal); M32.9 Systemic lupus erythematosus, unspecified; D62 Acute posthemorrhagic anemia; E03.9 Hypothyroidism, unspecified; I25.10 Atherosclerotic heart disease of native coronary artery without angina pectoris; E78.00 Pure hypercholesterolemia, unspecified; Z87.891 Personal history of nicotine dependence; Z95.5 Presence of coronary angioplasty implant and graft; I25.2 Old myocardial infarction